=== PATIENT | female | born 2000 | race Caucasian/White ===

== ENCOUNTER 2020-11-30 14:17 | Emergency (ER) | payer BC ==
[~2020-11-30] VITALS: Ht 170.2 cm; Wt 54.8 kg
[2020-11-30 14:37] VITALS: BP 134/96
--- NOTE | 2020-11-30 15:53 | NUR ---
PT REC'VD DISCHARGE INSTRUCTIONS AND EDUCATION. PT HAD NO FURTHER QUESTIONS. PT AMBULATED WITH FRIEND TO DC AREA.
== END 2020-11-30 16:00 | disposition home or self-care (01) ==
LOC: ED 15:56
DX: S00.87XA Other superficial bite of other part of head, initial encounter (principal); W54.0XXA Bitten by dog, initial encounter; Y93.89 Activity, other specified; Y92.830 Public park as the place of occurrence of the external cause; Y99.8 Other external cause status
CPT/HCPCS: 99283